=== PATIENT | female | born 1990 | race Caucasian/White ===

== ENCOUNTER 2023-07-30 15:06 | Emergency (ER) | payer MEDICAID, SELFPAY ==
--- NOTE | ~2023-07-30 | US_ITS ---
EXAMINATION: US PELVIS CLINICAL INFORMATION: Heavy vaginal bleeding COMPARISON: None available. TECHNIQUE: Ultrasound of the pelvis is performed using both transabdominal and transvaginal transducers along with Doppler. Transvaginal imaging is performed due to inadequate visualization transabdominally. FINDINGS: Uterus: The uterus is anteverted and measures 8.4 x 4.4 x 5.5 cm. The double wall endometrial thickness is 1.7 cm, with heterogeneity noted. The uterus is smooth in contour and has normal myometrial echogenicity. There is an echogenic structure along the lower uterine segment measuring 0.5 x 0.4 x 0.5 cm which could represent a small submucosal fibroid versus polyp. Adnexa: Both ovaries are visualized and appears unremarkable. Right ovary measures 2.7 x 1.7 x 2.2 cm. Left ovary measures 3.1 x 1.3 x 2.1 cm. There is normal color flow to the adnexa. There is no pelvic ascites or fluid collection. US/US pelvic and transvaginal IMPRESSION: 1. Prominent, heterogeneous endometrial stripe which may reflect blood products in the endometrial cavity. 2. Echogenic structure along the lower uterine segment measuring 0.5 x 0.4 x 0.5 cm which could represent a small submucosal fibroid versus polyp.
[2023-07-30 16:03] VITALS: BP 134/75; PULSE 85; RESP 20; TEMP 36.3; O2SAT 99; BMI 27.8
--- NOTE | 2023-07-30 16:03 | ED.FEMALEGU ---
HPI - Female Genitourinary General Chief complaint: Vaginal Bleeding Stated complaint: hemorrhaging ? Time Seen by Provider: 07/30/23 21:32 Related Data Allergies Allergy/AdvReac Type Severity Reaction Status Date / Time No Known Allergies Allergy Verified 07/30/23 16:07 REPLACED BY [facility] Social History Social History Alcohol intake: never Smoked in Last 30 Days: No Use of substances other than those prescribed or required for medical reasons: No Advance Directives: No Advance Directives Information Provided: No Patient : No Physical Exam Vital Signs: Vital Signs: Last Vital Signs Temp 98.7 F 07/30/23 22:00 Pulse 86 07/30/23 22:00 Resp 18 07/30/23 22:00 BP 114/66 07/30/23 22:00 Pulse Ox 99 07/30/23 22:00 O2 Del Method Room Air 07/30/23 22:00 BMI result Body Mass Index 27.8 Course Course Course Narrative: This is a rapid medical exam. Deferred additional HPI, ROS, PE to primary provider. 33 yo female here with complaints of heavy vaginal bleeding since Saturday (more then one pad per year). H/o of abnormal PAP smear several years ago. She did not follow up and has not seen [facility] since then. Not currently on BCP. Has had a tubal ligation. Will obtain labs, UA, ur preg Medical Decision Making Medical Decision Making MDM Narrative: -interpretation of labs, patient's hemoglobin is slightly below normal. Patient known to be anemic, takes iron supplements. Repeat H&H is relatively stable. -patient is not bleeding significantly. -I ordered IM Premarin which we do not have at this time the hospitals, on back order. We do not have TXA p.o. either. -my interpretation of ultrasound: Intrauterine , I do not see a fibroid. However, radiology report does report small fibroid. -I discussed the ultrasound findings with the patient, patient will follow-up with her OBGYN and discuss treatment options for menorrhagia -in the meantime, discussed with the patient that she will be on control pills high-dose with a taper. Patient agrees with plan. -we do not have nurse gynecology occupational therapist today Differential Diagnosis Differential Diagnoses: The differential diagnosis associated with the presentation includes (Uterine fibroid, uterine cyst, menorrhagia, menometrorrhagia) Admission/Observation Consideration of admission/observation: Escalation of care including admission/observation considered (Given patient's initial presentation and history, admission was considered) Lab Data MDM Lab Attestation statement: I reviewed the patient's lab results. 07/30/23 23:57 07/30/23 17:12 Labs: Lab Results 07/30/23 07/30/23 07/30/23 Range/Units 17:12 20:14 23:57 WBC 3.9 L (4.8-10.8) X10*3/uL RBC 3.99 L (4.20-5.50) X10*6/uL Hgb 11.5 L 10.9 L (12.0-16.0) g/dl Hct 34.1 L 32.4 L (37.0-47.0) % MCV 85.5 (80.0-98.0) fL MCH 28.8 (27.0-33.0) pg MCHC 33.7 (31.0-35.0) g/dl RDW 12.6 (11.0-16.0) % Plt Count 236 (160-400) X10*3/uL MPV 10.5 (9.4-12.3) fL Immature Gran % (Auto) 0.3 (0.0-0.4) % Neut % (Auto) 52.4 (45-73) % Lymph % (Auto) 36.1 (20-40) % [place] % (Auto) 8.7 (2-11) % Eos % (Auto) 2.0 (0-4) % Baso % (Auto) 0.5 (0-2) % Lymph # (Auto) 1.4 (1.2-4.9) X10*3/uL [place] # (Auto) 0.3 (0.1-1.2) X10*3/uL Eos # (Auto) 0.1 (0.0-0.4) X10*3/uL Baso # (Auto) 0.0 (0.0-0.2) X10*3/uL Abs Immat Gran (auto) 0.01 (0.00-0.03) X10*3/uL Absolute Neuts (auto) 2.1 (2.0-8.3) x10*3/uL Absolute Nucleated RBC 0.000 (0.0-0.012) X10*3/uL Nucleated RBC % (auto) 0.0 (0.0-0.2) /100WBC Sodium 141 (135-145) mmol/L Potassium 3.5 (3.3-5.1) mmol/L Chloride 107 (96-108) mmol/L Carbon Dioxide 25 (22-29) mmol/L Anion Gap 13 (12-20) BUN 13 (9-16) mg/dL Creatinine 0.71 (0.5-1.4) mg/dL Estim Creat Clear Calc 108.5 Estimated GFR > 60 Random Glucose 105 (60-115) mg/dL Calcium 9.5 (8.4-10.2) mg/dL Total Bilirubin 0.4 (0.0-1.0) mg/dL Direct Bilirubin 0.1 (0.0-0.5) mg/dL AST 63 H (5-31) U/L ALT 93 H (0-31) U/L Alkaline Phosphatase 59 (39-117) U/L Total Protein 7.0 (6.5-8.0) g/dL Albumin 4.1 (3.5-5.0) g/dL Urine Color RED Urine Appearance Turbid Urine pH 6.0 (5.0-9.0) Ur Specific [place] >= 1.030 H (1.005-1.025) Urine Protein 100 (2+) H (Neg-Trace) mg/dL Urine Glucose (UA) Negative (Negative) mg/dL Urine Ketones Negative (Negative) mg/dL Urine Blood Large (3+) H (Negative) Urine Nitrite Negative (Negative) Ur Leukocyte Esterase Negative (Negative) Urine RBC >20 H (0-2) /HPF Urine WBC 0-5 (0-5) /HPF Ur Squamous Epith Cells 0-2 (0-2) /HPF Urine Bacteria Trace (None Seen) Hyaline Casts 0-2 (0-2) /LPF Urine Test NEGATIVE (NEGATIVE) Independent Interpretation I performed an independent interpretation of an: Ultrasound Radiology Impression Discussion of test interpretation with radiology: I have reviewed the radiologist's reading. Radiologist Impression: FINDINGS: Uterus: The uterus is anteverted and measures 8.4 x 4.4 x 5.5 cm. The double wall endometrial thickness is 1.7 cm, with heterogeneity noted. The uterus is smooth in contour and has normal myometrial echogenicity. There is an echogenic structure along the lower uterine segment measuring 0.5 x 0.4 x 0.5 cm which could represent a small submucosal fibroid versus polyp. Adnexa: Both ovaries are visualized and appears unremarkable. Right ovary measures 2.7 x 1.7 x 2.2 cm. Left ovary measures 3.1 x 1.3 x 2.1 cm. There is normal color flow to the adnexa. There is no pelvic ascites or fluid collection. US/US pelvic and transvaginal IMPRESSION: 1. Prominent, heterogeneous endometrial stripe which may reflect blood products in the endometrial cavity. 2. Echogenic structure along the lower uterine segment measuring 0.5 x 0.4 x 0.5 cm which could represent a small submucosal fibroid versus polyp. Independent Historian Clinical information obtained from an independent historian. History obtained from or confirmed by: Spouse Critical Care Time Critical Care Time Critical Care Time: Yes Total Critical Care Time: 30 Attestation: I have personally provided critical care time. Time includes review of lab data, radiology results, discussion with consultants, and monitoring for potential decompensation. Intervention performed as documented. Discharge Plan Discharge Clinical Impression: Menorrhagia Patient Disposition: Home, Self-Care Instructions: Menorrhagia (ED) Additional Instructions: Please follow-up with your primary care physician tomorrow. If you have any worsening or new symptoms, please return to the emergency room or call 911
[2023-07-30 17:24] LABS: MANUAL DIFF FLAG NO
[2023-07-30 17:31] LABS: Basophils Percent Auto 0.5 % (0-2); Eosinophils Absolute Auto 0.1 X10*3/uL (0.0-0.4); Hematocrit 34.1 % (37.0-47.0); Hemoglobin 11.5 g/dl (12.0-16.0); Imm Gran Abs Auto 0.01 X10*3/uL (0.00-0.03); Imm Gran Pct Auto 0.3 % (0.0-0.4); Lymphocytes Absolute Auto 1.4 X10*3/uL (1.2-4.9); Lymphocytes Percent Auto 36.1 % (20-40); Mean Corpuscular HGB Conc 33.7 g/dl (31.0-35.0); Mean Corpuscular Hemoglobin 28.8 pg (27.0-33.0); Mean Corpuscular Volume 85.5 fL (80.0-98.0); Mean Platelet Volume 10.5 fL (9.4-12.3); Monocytes Absolute Auto 0.3 X10*3/uL (0.1-1.2); Monocytes Percent Auto 8.7 % (2-11); Neutrophils Absolute Auto 2.1 x10*3/uL (2.0-8.3); Neutrophils Percent Auto 52.4 % (45-73); Platelet Count 236 X10*3/uL (160-400); Red Blood Count 3.99 X10*6/uL (4.20-5.50); Red Cell Distribution Width 12.6 % (11.0-16.0); White Blood Count 3.9 X10*3/uL (4.8-10.8)
[2023-07-30 17:49] LABS: Alanine Aminotransferase 93 U/L (0-31); Albumin Level 4.1 g/dL (3.5-5.0); Alkaline Phosphatase 59 U/L (39-117); Anion Gap 13 (12-20); Aspartate Amino Transferase 63 U/L (5-31); Bilirubin Direct 0.1 mg/dL (0.0-0.5); Bilirubin Total 0.4 mg/dL (0.0-1.0); Blood Urea Nitrogen 13 mg/dL (9-16); Calcium 9.5 mg/dL (8.4-10.2); Carbon Dioxide 25 mmol/L (22-29); Chloride 107 mmol/L (96-108); Creatinine Clr Calc Pharmacy 108.5; Estimated Glomerular Filt Rate > 60; Glucose Random 105 mg/dL (60-115); Potassium 3.5 mmol/L (3.3-5.1); Sodium 141 mmol/L (135-145)
[2023-07-30 20:13] VITALS: BP 112/62; PULSE 79; RESP 16; TEMP 36.7; O2SAT 100
[2023-07-30 20:33] LABS: UPreg QC Valid YES; Urine Pregnancy NEGATIVE (NEGATIVE)
[2023-07-30 20:47] LABS: Appearance Urine Turbid; Color Urine RED; Glucose Urine UA Negative (Negative); Leukocyte Esterase Urine Negative (Negative); Nitrite Urine Negative (Negative); Specific Gravity - Urine >= 1.030 (1.005-1.025); UMIC TRIGGER UACC YES; Urine Blood Large (3+) (Negative); Urine Ketones Negative (Negative); Urine Protein 100 (2+) mg/dL (Neg-Trace)
[2023-07-30 21:11] LABS: RBC Urine >20 /HPF (0-2); Squamous Epithelial Cell Urine 0-2 /HPF (0-2); WBC Urine 0-5 /HPF (0-5)
[2023-07-30 21:12] LABS: Bacteria Urine Trace (None Seen); Hyaline Casts Urine 0-2 /LPF (0-2)
--- NOTE | 2023-07-30 21:41 | ED_ITS ---
HPI - Female Genitourinary General Chief complaint: Vaginal Bleeding Stated complaint: hemorrhaging ? Time Seen by Provider: 07/30/23 21:32 Source: patient Mode of arrival: ambulatory Limitations: no limitations History of Present Illness HPI Narrative: Patient comes to the emergency room complaining of heavy vaginal bleeding for 3 days. Patient states that she is currently on her menstrual period, but is much heavier than usual. Patient states that approximately 2 years ago, she had a C- section, seems that it was complicated by heavy bleeding, hysterectomy was considered. Patient states that since then, her menstruation has been abnormal, and tends to bleed in between menstrual periods with exercise or exertion. Patient denies chest pain or shortness of breath, no lightheadedness. Related Data Previous Rx's Medication Instructions Recorded levonorgestrel-ethinyl estradiol See Rx Instructions .Route 07/31/23 0.1 mg-20 mcg tablet .COMPLEX #42 tabs Allergies Allergy/AdvReac Type Severity Reaction Status Date / Time No Known Allergies Allergy Verified 07/30/23 16:07 Review of Systems 2 Review of Systems: Constitutional : No Weight loss, No Fever, No Chills, No Night Sweats, No Fatigue, No Malaise ENT/Mouth : No Hearing loss, No Ear Pain, No Nasal Congestion, No Sinus Pain, No Hoarseness, No sore throat, No Rhinorrhea, No Swallowing Difficulty Eyes: No Eye Pain, No Swelling, No Redness, No Foreign Body, No Discharge, No Vision Changes Cardiovascular : No Chest Pain, No SOB, No Dyspnea on Exertion, No Orthopnea, No Edema, No Palpitations Respiratory : No Cough, No Sputum, No Wheezing, No Smoke Exposure, No Dyspnea Gastrointestinal : No Nausea, No Vomiting, No Diarrhea, No Constipation, No abdominal Pain, No Hematochezia, No Melena Genitourinary : Complaining of heavy vaginal bleeding during menstruation,, No Dysuria, No Urinary Frequency, No Hematuria, No Urinary Incontinence, No Urgency, No Flank Pain, No Urinary Flow Changes, No Hesitancy Musculoskeletal : No joint pain, No Myalgias, No Joint Swelling Skin : No Skin Lesions, No rash Neuro : No Weakness, No Numbness, No Paresthesias, No Loss of Consciousness, No Dizziness, No Headache Psych : No Anxiety/Panic, No Depression, No SI/HI/AH/VH, No Social Issues, Heme/Lymph: No Bruising, No Bleeding,No Lymphadenopathy Endocrine : No Polyuria, No Polydipsia, No Temperature Intolerance PMFSH Social History Social History Alcohol intake: never Smoked in Last 30 Days: No Use of substances other than those prescribed or required for medical reasons: No Advance Directives: No Advance Directives Information Provided: No Patient : No Physical Exam 2 Vital Signs: Vital Signs: Last Vital Signs Temp 98.7 F 07/30/23 22:00 Pulse 86 07/30/23 22:00 Resp 18 07/30/23 22:00 BP 114/66 07/30/23 22:00 Pulse Ox 99 07/30/23 22:00 O2 Del Method Room Air 07/30/23 22:00 BMI result Body Mass Index 27.8 Const: Other: Appearance: Alert. Oriented X3. No acute distress. Eyes: Pupils equal, round and reactive to light. ENT: Pharynx normal. Neck: Normal inspection. Neck supple. No lymph nodes noted. No crepitus CVS: Normal heart rate and rhythm. Pulses normal. Normal S1 and S2 Respiratory: No respiratory distress. Breath sounds normal. No Wheezing. No rales Abdomen: Soft and nontender. No rigidity. No distention. Review: There is moderate amount of blood and heavy amount of blood clots in the vaginal vault. Cervix seems to have no lesion at the 3 o'clock position. Not actively bleeding. With suprapubic pressure, there is mild bleeding through the cervix Skin: Skin warm and dry. Normal skin color. Normal skin turgor. Extremities: No lower extremity edema. No Lacerations. No Rash Neuro: Oriented X 3. No motor deficit. No sensory deficit. Moving all extremities. No slurred speech. CN 2 through 12 grossly intact Psych: calm, cooperative, normal affect Medical Decision Making Medical Decision Making MDM Narrative: -my interpretation of labs, hemoglobin 11.5, hematocrit 34.1, patient known to be anemic, takes iron supplements at home. Chemistry within normal limits. Urine negative for UTI, large amount of blood, patient currently menstruating -patient has moderate vaginal bleeding, still ongoing. Patient was given 1 dose of IM Premarin -prescription sent to the patient's pharmacy -patient states that she has an OBGYN back home in [place] Lab Data 07/30/23 23:57 07/30/23 17:12 Labs: Lab Results 07/30/23 07/30/23 07/30/23 Range/Units 17:12 20:14 23:57 WBC 3.9 L (4.8-10.8) X10*3/uL RBC 3.99 L (4.20-5.50) X10*6/uL Hgb 11.5 L 10.9 L (12.0-16.0) g/dl Hct 34.1 L 32.4 L (37.0-47.0) % MCV 85.5 (80.0-98.0) fL MCH 28.8 (27.0-33.0) pg MCHC 33.7 (31.0-35.0) g/dl RDW 12.6 (11.0-16.0) % Plt Count 236 (160-400) X10*3/uL MPV 10.5 (9.4-12.3) fL Immature Gran % (Auto) 0.3 (0.0-0.4) % Neut % (Auto) 52.4 (45-73) % Lymph % (Auto) 36.1 (20-40) % [place] % (Auto) 8.7 (2-11) % Eos % (Auto) 2.0 (0-4) % Baso % (Auto) 0.5 (0-2) % Lymph # (Auto) 1.4 (1.2-4.9) X10*3/uL [place] # (Auto) 0.3 (0.1-1.2) X10*3/uL Eos # (Auto) 0.1 (0.0-0.4) X10*3/uL Baso # (Auto) 0.0 (0.0-0.2) X10*3/uL Abs Immat Gran (auto) 0.01 (0.00-0.03) X10*3/uL Absolute Neuts (auto) 2.1 (2.0-8.3) x10*3/uL Absolute Nucleated RBC 0.000 (0.0-0.012) X10*3/uL Nucleated RBC % (auto) 0.0 (0.0-0.2) /100WBC Sodium 141 (135-145) mmol/L Potassium 3.5 (3.3-5.1) mmol/L Chloride 107 (96-108) mmol/L Carbon Dioxide 25 (22-29) mmol/L Anion Gap 13 (12-20) BUN 13 (9-16) mg/dL Creatinine 0.71 (0.5-1.4) mg/dL Estim Creat Clear Calc 108.5 Estimated GFR > 60 Random Glucose 105 (60-115) mg/dL Calcium 9.5 (8.4-10.2) mg/dL Total Bilirubin 0.4 (0.0-1.0) mg/dL Direct Bilirubin 0.1 (0.0-0.5) mg/dL AST 63 H (5-31) U/L ALT 93 H (0-31) U/L Alkaline Phosphatase 59 (39-117) U/L Total Protein 7.0 (6.5-8.0) g/dL Albumin 4.1 (3.5-5.0) g/dL Urine Color RED Urine Appearance Turbid Urine pH 6.0 (5.0-9.0) Ur Specific [place] >= 1.030 H (1.005-1.025) Urine Protein 100 (2+) H (Neg-Trace) mg/dL Urine Glucose (UA) Negative (Negative) mg/dL Urine Ketones Negative (Negative) mg/dL Urine Blood Large (3+) H (Negative) Urine Nitrite Negative (Negative) Ur Leukocyte Esterase Negative (Negative) Urine RBC >20 H (0-2) /HPF Urine WBC 0-5 (0-5) /HPF Ur Squamous Epith Cells 0-2 (0-2) /HPF Urine Bacteria Trace (None Seen) Hyaline Casts 0-2 (0-2) /LPF Urine Test NEGATIVE (NEGATIVE) Discharge Plan Discharge Clinical Impression: Menorrhagia Patient Disposition: Home, Self-Care Instructions: Menorrhagia (ED) Additional Instructions: Please follow-up with your primary care physician tomorrow. If you have any worsening or new symptoms, please return to the emergency room or call 911 Prescriptions: New levonorgestrel-ethinyl estrad 0.1-20 mg-mcg tablet See Rx Instructions .ROUTE .COMPLEX Qty: 42 0RF Rx Instructions: Four tablets oral for 4 days, 3 tablets daily for 3 days, 2 tablets daily for 2 days, 1 tablet oral daily until finished
[2023-07-30 22:00] VITALS: BP 114/66; PULSE 86; RESP 18; TEMP 37.1; O2SAT 99
--- NOTE | 2023-07-30 22:08 | PC.NURSE ---
Pt AOx3, Pt reporting 4/10 lower abdominal cramping, pt reports being on her period since last Saturday with increased vaginal bleeding. Pt reporting quarter sized clots, dark red in color noted. Pt stated i have been going through 2 fully saturated pads every hour. Pelvic exam done via Dr. Bernal. Vital signs updated. Pt calm and cooperative, aware of plan and taken for Ultrasound.
[2023-07-31 00:03] LABS: Hematocrit 32.4 % (37.0-47.0); Hemoglobin 10.9 g/dl (12.0-16.0)
--- NOTE | 2023-07-31 01:13 | PC.NURSE ---
Pt reports going through 2 fully saturated pads every hour.
--- NOTE | 2023-07-31 01:25 | PC.NURSE ---
Med not available provider made aware. med not given
== END 2023-07-31 01:32 | disposition home or self-care (01) ==
PROVIDERS: Nurse Practitioner Family; Emergency Provider Emergency Medicine
DX: N92.0 Excessive and frequent menstruation with regular cycle (principal)
CPT/HCPCS: 36415; 76830; 76856; 80048; 80076; 81001; 81025; 85014; 85018; 85025; 99284